=== PATIENT | male | born 2000 | race Caucasian/White ===

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

== ENCOUNTER 2022-08-09 09:40 | Emergency (ER) | payer OTHER ==
[~2022-08-09] VITALS: Ht 170.2 cm; Wt 84.1 kg
[~2022-08-09 09:40] MED LIST changes: -HYD25 PO; +HYDR-4527 PO
[2022-08-09 12:17] VITALS: BP 102/74
== END 2022-08-09 12:34 | disposition home or self-care (01) ==
LOC: EMS 09:40
DX: F41.9 Anxiety disorder, unspecified (principal); F17.210 Nicotine dependence, cigarettes, uncomplicated; Z48.02 Encounter for removal of sutures
CPT/HCPCS: 99281; Z7502

== ENCOUNTER 2024-02-20 12:37 | Emergency (ER) | payer MEDICAID, OTHER ==
[~2024-02-20] VITALS: Ht 170.2 cm; Wt 75.0 kg
[2024-02-20] MEDS ORDERED: IBUP-1492 PO (15:17)
[2024-02-20 16:00] VITALS: BP 125/79; PULSE 78; RESP 18; TEMP 98.2; O2SAT 98
== END 2024-02-20 16:58 | disposition home or self-care (01) ==
LOC: EMS 12:53
DX: S93.401A Sprain of unspecified ligament of right ankle, initial encounter (principal); W01.0XXA Fall on same level from slipping, tripping and stumbling without subsequent striking against object, initial encounter; Y93.89 Activity, other specified; Y92.89 Other specified places as the place of occurrence of the external cause; Y99.8 Other external cause status
CPT/HCPCS: 29515; 99283